=== PATIENT | female | born 1940 | race Caucasian/White ===

== ENCOUNTER 2024-11-30 20:45 | Outpatient (REF) | payer MEDICARE, MEDICAID, SELFPAY ==
[2024-11-30 21:41] LABS: Hematocrit 38.7 % (36.0-48.0); Hemoglobin 12.7 g/dL (12.0-16.0); Immature Granulocytes Abs Auto 0.02 10^3/uL (0.00-0.03); Immature Granulocytes Pct Auto 0.2 % (0.0-0.5); Lymphocytes Absolute Auto 1.8 10^3/uL (1.2-3.8); Mean Corpuscular HGB Conc 32.8 g/dL (29.9-35.2); Mean Corpuscular Hemoglobin 32.0 pg (26.7-34.0); Mean Corpuscular Volume 97.5 fL (81.0-99.0); Platelet Count 223 10^3/uL (150-450); Red Blood Count 3.97 10^6/uL (4.20-5.40); White Blood Count 9.6 10^3/uL (4.0-11.0)
== END 2024-11-30 20:46 | disposition home or self-care (01) ==
LOC: LAB 20:45
PROVIDERS: PCP Internal Medicine; Visit Provider Internal Medicine
DX: R06.02 Shortness of breath (principal)
CPT/HCPCS: 36415; 85025